=== PATIENT | female | born 1985 | race American Indian/Alaskan Native ===

== ENCOUNTER 2020-12-27 20:24 | Emergency (ER) | payer SELFPAY ==
[2020-12-27 21:49] VITALS: BP 149/78
--- NOTE | 2020-12-27 22:54 | XRay Report ---
CHEST 2 VIEWS INDICATION / CLINICAL INFORMATION: Shortness of breath w/ CP and cough. COMPARISON: None available. FINDINGS: SUPPORT DEVICES: None. HEART / MEDIASTINUM: No significant abnormality. LUNGS / PLEURA: No significant pulmonary or pleural abnormality. No pneumothorax. ADDITIONAL FINDINGS: No significant additional findings. IMPRESSION: 1. No acute findings. Signer Name: Pino Metcalf MD Signed: 12/27/2020 10:50 PM Workstation Name: [id number]
[2020-12-27 23:53] LABS: Basophils % (Auto) 0.3 % (0.0-1.8); Eosinophils # (Auto) 0.2 K/mm3 (0.0-0.4); Eosinophils % (Auto) 2.2 % (0.0-4.3); Hematocrit 38.6 % (30.3-42.9); Hemoglobin 13.3 gm/dl (10.1-14.3); Lymphocytes # (Auto) 2.5 K/mm3 (1.2-5.4); Lymphocytes % (Auto) 29.8 % (13.4-35.0); Mean Corpuscular HGB Conc 35 % (30-34); Mean Corpuscular Volume 89 fl (79-97); Monocytes # (Auto) 0.6 K/mm3 (0.0-0.8); Monocytes % (Auto) 7.5 % (0.0-7.3); Platelet Count 257 K/mm3 (140-440); Red Blood Count 4.33 M/mm3 (3.65-5.03); Red Cell Distribution Width 13.7 % (13.2-15.2)
[2020-12-27 23:57] LABS: Alanine Aminotransferase 23 units/L (7-56); Albumin 4.2 g/dL (3.9-5); Blood Urea Nitrogen 7 mg/dL (7-17); Calcium 9.3 mg/dL (8.4-10.2); Hemolysis Index 5
[2020-12-28 00:05] LABS: BUN/Creatinine Ratio 12
[2020-12-28] MEDS ORDERED: ACETAMINOPEN W/CODEINE 120-12MG ORAL LIQD 5 ML PO STA (00:05)
[2020-12-28] MEDS ORDERED: predniSONE 50 MG TAB PO STA (00:05)
--- NOTE | 2020-12-28 00:21 | Emergency Department Report ---
ED General Adult HPI - General Chief complaint: Chest Pain Stated complaint: TRESA/COUGH/CHEST PAIN Time Seen by Provider: 12/28/20 00:05 Source: patient Mode of arrival: Ambulatory Limitations: No Limitations - History of Present Illness Initial comments: 35-year-old obese F [place] female presents emerged department complaining of a 4-day history of coughing, chest congestion,'s sore throat with mucus production occasional wheezing off and on and a feverish sensation not responding to [id number] treatments. -: Gradual Radiation: non-radiation Quality: dull Consistency: constant Improves with: none Worsens with: none Associated Symptoms: cough. denies: confusion, chest pain, malaise, syncope, weakness - Related Data Previous Rx's Medication Instructions Recorded Last Taken Type Famotidine [Pepcid] 20 mg PO DAILY #30 tablet 01/26/14 01/27/14 Rx Metoclopramide [Reglan] 10 mg PO TID #30 tablet 01/26/14 01/27/14 Rx traMADoL [Ultram 50 MG tab] 50 - 100 mg PO Q8HR PRN #30 tablet 01/26/14 01/27/14 Rx HYDROcodone/APAP 5-325 [[place] 1 each PO Q6HR PRN #20 tablet 01/27/14 Unknown Rx 5/325] Albuterol Mdi (or & Nicu Only) 1 puff IH Q4-6H PRN #1 inha 12/28/20 Unknown Rx [ProAir HFA Inhaler] Azithromycin [Zithromax] 500 mg PO QDAY #5 tablet 12/28/20 Unknown Rx predniSONE [Deltasone] 50 mg PO QDAY #5 tab 12/28/20 Unknown Rx Allergies Allergy/AdvReac Type Severity Reaction Status Date / Time tramadol Allergy Headache Verified 12/27/20 21:48 ED Review of Systems ROS: Stated complaint: TRESA/COUGH/CHEST PAIN Other details as noted in HPI Comment: All other systems reviewed and negative ED Past Medical Hx - Past Medical History Previous Medical History?: No - Surgical History Past Surgical History?: Yes Additional Surgical History: pancreas surgery childhood - Social History Smoking Status: Never Smoker Substance Use Type: Alcohol - Medications Home Medications: Home Medications Medication Instructions Recorded Confirmed Last Taken Type Famotidine [Pepcid] 20 mg PO DAILY #30 tablet 01/26/14 01/27/14 01/27/14 Rx Metoclopramide [Reglan] 10 mg PO TID #30 tablet 01/26/14 01/27/14 01/27/14 Rx traMADoL [Ultram 50 MG tab] 50 - 100 mg PO Q8HR PRN #30 tablet 01/26/14 01/27/14 01/27/14 Rx HYDROcodone/APAP 5-325 [[place] 1 each PO Q6HR PRN #20 tablet 01/27/14 Unknown Rx 5/325] Albuterol Mdi (or & Nicu Only) 1 puff IH Q4-6H PRN #1 inha 12/28/20 Unknown Rx [ProAir HFA Inhaler] Azithromycin [Zithromax] 500 mg PO QDAY #5 tablet 12/28/20 Unknown Rx predniSONE [Deltasone] 50 mg PO QDAY #5 tab 12/28/20 Unknown Rx ED Physical Exam - General Limitations: No Limitations General appearance: alert, in no apparent distress - Head Head exam: Present: atraumatic, normocephalic - Eye Eye exam: Present: normal appearance, PERRL, EOMI - ENT ENT exam: Present: normal exam, mucous membranes moist, other (Nasal congestion bilaterally. Clear drainage. Effusion to the left tympanic membrane.) - Neck Neck exam: Present: normal inspection, full ROM - Respiratory Respiratory exam: Present: normal lung sounds bilaterally. Absent: respiratory distress, wheezes, rales, chest wall tenderness, accessory muscle use - Cardiovascular Cardiovascular Exam: Present: regular rate, normal rhythm. Absent: systolic murmur, diastolic murmur, rubs, gallop - GI/Abdominal GI/Abdominal exam: Present: soft, normal bowel sounds - Extremities Exam Extremities exam: Present: normal inspection, full ROM, normal capillary refill - Back Exam Back exam: Present: normal inspection. Absent: CVA tenderness (R), CVA tenderness (L) - Neurological Exam Neurological exam: Present: alert, oriented X3, CN II-XII intact, normal gait - Psychiatric Psychiatric exam: Present: normal affect, normal mood - Skin Skin exam: Present: warm, dry, intact, normal color. Absent: rash ED Course Vital Signs 12/27/20 21:34 Temperature 99.5 F Pulse Rate 91 H Respiratory 18 Rate Blood Pressure 149/78 O2 Sat by Pulse 97 Oximetry ED Medical Decision Making - Lab Data Result diagrams: 12/27/20 23:05 12/27/20 23:05 - Radiology Data Radiology results: report reviewed [facility] [address] [place] [address] XRay Report Signed Patient: ERIS MOSLEY MR#: [id number] : 1985 Acct:[id number] Age/Sex: 35 / F ADM Date: 12/27/20 Loc: ED Attending Dr: Ordering Physician: MERLENE BOLAND MD Date of Service: 12/27/20 Procedure(s): XR chest routine 2V Accession Number(s): [id number] cc: MERLENE BOLAND MD Fluoro Time In Minutes: CHEST 2 VIEWS INDICATION / CLINICAL INFORMATION: Shortness of breath w/ CP and cough. COMPARISON: None available. FINDINGS: SUPPORT DEVICES: None. HEART / MEDIASTINUM: No significant abnormality. LUNGS / PLEURA: No significant pulmonary or pleural abnormality. No pneumothorax. ADDITIONAL FINDINGS: No significant additional findings. IMPRESSION: 1. No acute findings. Signer Name: Pino Davies MD Signed: 12/27/2020 10:50 PM Workstation Name: [id number] Transcribed By: CW Dictated By: OLIVIA DAVIES MD Electronically Authenticated By: OLIVIA DAVIES MD Signed Date/Time: 12/27/202249 DD/ 49 TD/TT: Print Cancel - Medical Decision Making This patient presents with acute cough, most consistent with bronchitis. Differential diagnosis includes bronchitis, hyperreactive airways, pneumonia,. Presentation not consistent with acute bacterial pneumonia, influenza, asthma, transient airway hyperresponsiveness. Presentation not consistent with chronic causes of cough (including GERD, asthma, postnasal discharge, medication side effect, CHF, lung cancer or mass). Plan: Normal CXR, supportive care, reassess Critical care attestation.: If time is entered above; I have spent that time in minutes in the direct care of this critically ill patient, excluding procedure time. ED Disposition Clinical Impression: Bronchitis Disposition: DC-01 TO HOME OR SELFCARE Is pt being admited?: No Does the pt Need Aspirin: No Condition: Stable Instructions: Chronic Bronchitis (ED), Upper Respiratory Infection, Adult, [id number], How to Use a Metered Dose Inhaler, How to Use a Dry Powder Inhal er, Acute Bronchitis, Adult Prescriptions: predniSONE [Deltasone] 50 mg PO QDAY #5 tab Albuterol Mdi (or & Nicu Only) [ProAir HFA Inhaler] 1 puff IH Q4-6H PRN #1 inha PRN Reason: Cough Azithromycin [Zithromax] 500 mg PO QDAY #5 tablet Referrals: PRIMARY CARE, [Primary Care Provider] - 3-5 Days [facility] [Provider Group] - 3-5 Days
--- NOTE | 2020-12-28 14:20 | Electrocardiograph Report ---
[facility] Test Date: 2020-12-27 Test Time: 21:41:25 Pat Name: ERIS MOSLEY Department: Room: Gender: F General Internist And Physician Leader: DOROTHEA : 1985 Requested By: AYLEEN LANDA III Order Number: [id number] Reading MD: Renetta Zepeda Measurements Intervals [place] Rate: 82 P: 59 SC: 149 QRS: 76 QRSD: 85 T: 31 QT: 372 QTc: 435 Interpretive Statements Sinus rhythm Probable left atrial enlargement No previous ECG available for comparison Electronically Signed On 12-28-2020 14:20:33 EDT by Renetta Zepeda
== END 2020-12-28 00:55 | disposition home or self-care (01) ==
LOC: ED 20:24
DX: J40 Bronchitis, not specified as acute or chronic (principal); Z72.89 Other problems related to lifestyle; Z98.890 Other specified postprocedural states; Z88.6 Allergy status to analgesic agent; Z79.899 Other long term (current) drug therapy
CPT/HCPCS: 36415; 71046; 80053; 84484; 85025; 93005; 99284; J7512